=== PATIENT | female | born 1975 | race Caucasian/White ===

== ENCOUNTER 2016-07-27 01:38 | Emergency (ER) | payer OTHER ==
[~2016-07-27] VITALS: Ht 152.4 cm; Wt 62.6 kg
[~2016-07-27 01:38] MED LIST: REGLAN 10 MG; VAS5; [UNRECOGNIZED DRUG - CODE]
[2016-07-27 01:42] VITALS: BP 142/96
--- NOTE | 2016-07-27 01:45 | NUR ---
PATIENT AMBULATED TO ER BED 8.
--- NOTE | 2016-07-27 01:55 | NUR ---
PATIENT BEING EVALUATED BY DR. BOX.
[2016-07-27] MEDS ORDERED: MORPHINE SULFATE 4 MG/ML SYR IVP ONE (02:00)
--- NOTE | 2016-07-27 02:00 | NUR ---
PATIENT PRESENTS TO ED WITH LOWER ABD PAIN STRATED TODAY . DENIES N/V/D; SKIN IS PINK/WARM/DRY; AAOX4 WITH EVEN AND STEADY GAIT; LUNGS CLEAR BL; HR EVEN AND REGULAR; PT DENIES ANY FEVER, CP, SOB, OR COUGH AT THIS TIME; PATIENT STATES PAIN OF 10/10 AT THIS TIME; PATIENT POSITIONED FOR COMFORT; HOB ELEVATED; BEDRAILS UP X2; BED DOWN.PT SAID I CANNT URINATE AT THIS TIME
[2016-07-27 02:11] LABS: HEMATOCRIT 38.6 % (36-48); HEMOGLOBIN 12.7 g/dL (12.0-16.0); MEAN CORPUSCULAR HEMOGLOBIN 29 pg (27-31); MEAN CORPUSCULAR HGB CONC 33 g/dL (33-37); MEAN CORPUSCULAR VOLUME 88 fL (80-94); PLATELET COUNT (AUTO) 377 K/uL (140-450); RED CELL DISTRIBUTION WIDTH 12.4 % (11.6-13.7); WHITE BLOOD COUNT (AUTO) 8.2 K/uL (4.8-10.8)
--- NOTE | 2016-07-27 02:17 | NUR ---
STRAIGHT CATH DONE,NO BLEEDING NOTED.
[2016-07-27 02:20] LABS: ANION GAP 13.5 (8-16); CALCIUM 8.1 mg/dL (8.5-10.1); CREATININE 0.9 mg/dL (0.6-1.3); POTASSIUM 3.5 mmol/L (3.5-5.1)
[2016-07-27 02:22] LABS: BAND % (MANUAL) 2 % (0-8); NEUTROPHILS % (MANUAL) 41 (43-65)
[2016-07-27 02:23] LABS: EOSINOPHILS % (MANUAL) 1 % (0-4); MONOCYTES % (MANUAL) 3 % (5-12)
[2016-07-27 02:24] LABS: LYMPHOCYTES % (MANUAL) 53 % (20-46)
--- NOTE | 2016-07-27 02:25 | NUR ---
PT WENT TO CT VIA ONEL,PT AAO
--- NOTE | 2016-07-27 02:25 | NUR ---
RELAYED TO DR. BOX RESULT OF URINE DIPSTICK
[2016-07-27 02:28] LABS: ALBUMIN 3.9 g/dL (3.4-5.0); TOTAL BILIRUBIN 0.2 mg/dL (0.0-1.0); TOTAL PROTEIN, SERUM 7.5 g/dL (6.4-8.2)
--- NOTE | 2016-07-27 02:31 | NUR ---
BACK FROM CT
--- NOTE | 2016-07-27 02:48 | NUR ---
PT RESTING NO C/O PAIN AT THIS TIME, DAUGHTER AT BEDSIDE,VITAL SIGN STABLE
[2016-07-27 02:59] LABS: APPEARANCE,URINE CLEAR (CLEAR); BILIRUBIN,URINE NEGATIVE (NEGATIVE); BLOOD, URINE 3+ (NEGATIVE); COLOR,URINE YELLOW (YELLOW); LEUKOCYTE ESTERASE ,URINE TRACE (NEGATIVE); NITRITE, URINE NEGATIVE (NEGATIVE); PROTEIN,URINE NEGATIVE (NEGATIVE); UGLUCOSE NEGATIVE (NEGATIVE); UROBILINOGEN,URINE 0.2 EU/dL (0.2 - 1)
--- NOTE | 2016-07-27 03:08 | NUR ---
UPDATED PT STILL WAITING FOR RESULT OF CT AND URINE ANALYSIS,PT AAO,CALM,NO PAIN NOTED.
[2016-07-27 03:09] LABS: BACTERIA,URINE 1+ /HPF (None Seen); RBC,URINE 50-80 /HPF (0-5); WBC,URINE 0-5 (RARE) /HPF (0-5)
[2016-07-27 03:10] LABS: SQUAMOUS EPITHELIAL CELL,UR 4-10 (MOD) /LPF (0-3 (FEW))
--- NOTE | 2016-07-27 03:32 | NUR ---
DR. BOX AT BEDSIDE
--- NOTE | 2016-07-27 03:41 | NUR ---
DR. BOX DISCUSS TO PT FLUID INTAKE AND PT AGREED WITH IT
--- NOTE | 2016-07-27 03:44 | NUR ---
Patient discharged with v/s stable. Written and verbal after care instructions given and explained. Patient alert, oriented and verbalized understanding of instructions. Ambulatory with steady gait. All questions addressed prior to discharge. ID band removed. Patient advised to follow up with PMD. Rx of NORCO AND IBUPROFEN given. Patient educated on indication of medication including possible reaction and side effects. Opportunity to ask questions provided and answered.
[2016-07-27 03:45] VITALS: BP 130/93
== END 2016-07-27 03:44 | disposition home or self-care (01) ==
LOC: MED 01:38
DX: N13.2 Hydronephrosis with renal and ureteral calculous obstruction (principal); I10 Essential (primary) hypertension; J45.909 Unspecified asthma, uncomplicated
CPT/HCPCS: 36415; 74176; 80053; 81001; 81025; 82150; 83690; 85025; 87086; 96374; 99285; C1758; J2270

== ENCOUNTER 2020-02-01 23:19 | Emergency (ER) | payer OTHER ==
[~2020-02-01] VITALS: Ht 152.4 cm; Wt 59.0 kg
[~2020-02-01 23:19] MED LIST changes: +ATA25 PO; +ESK300 PO; +FENO130C6 PO; +IPRA12.9 IH; +OMEP20TC22 PO; +QUET400T PO; -REGLAN 10 MG; -VAS5; -[UNRECOGNIZED DRUG - CODE]; +[UNRECOGNIZED DRUG - CODE] SQ
[2020-02-01 23:20] VITALS: BP 127/77
--- NOTE | 2020-02-01 23:20 | NUR ---
TO TENT # 01 AMBULATORY
--- NOTE | 2020-02-01 23:50 | NUR ---
SEEN AND EXAMINED BY ANA LILIA WITH ORDERS AND CARRIED OUT
--- NOTE | 2020-02-01 23:55 | NUR ---
SWAB DONE AND SENT TO LAB
[2020-02-02] VITALS: BP 127/77
--- NOTE | 2020-02-02 | NUR ---
Patient discharged with v/s stable. Written and verbal after care instructions given and explained. Patient alert, oriented and verbalized understanding of instructions. Ambulatory with steady gait. All questions addressed prior to discharge. ID band removed. Patient advised to follow up with PMD. Rx of MOTRIN, PREDNISONE given. Patient educated on indication of medication including possible reaction and side effects. Opportunity to ask questions provided and answered.
== END 2020-02-02 | disposition home or self-care (01) ==
LOC: MED 23:19
DX: J02.9 Acute pharyngitis, unspecified (principal); Z20.828 Contact with and (suspected) exposure to other viral communicable diseases; J45.909 Unspecified asthma, uncomplicated; I10 Essential (primary) hypertension; Z90.49 Acquired absence of other specified parts of digestive tract; Z98.890 Other specified postprocedural states; Z79.899 Other long term (current) drug therapy
CPT/HCPCS: 99283; U0003

== ENCOUNTER 2020-03-30 13:30 | Emergency (ER) | payer OTHER ==
[~2020-03-30] VITALS: Ht 154.9 cm; Wt 59.9 kg
[2020-03-30 13:35] VITALS: BP 115/77
--- NOTE | 2020-03-30 13:41 | NUR ---
PT AMBULATED TO BED 3.
--- NOTE | 2020-03-30 13:50 | NUR ---
45 Y/O FEMALE COMING IN FROM HOME WITH C/C HEADACHE. PT STATES SHE HAS BEEN EXPERIENCING A HEADACHE THAT BEGINS IN THE BACK OF HER HEAD, RADIATES TO THE FRONT TOWARD HER NECK, AND DOWN BOTH SHOULDERS. PT STATES THIS MORNING SHE FELT THAT HER THROAT WAS CLOSING UP, HOWEVER, IT RELIEVED ITSELF WITH TIME. PT STATES PAIN 8/10, "THROBBING" PAIN, RADIATES TO FRONT OF HEAD, DOWN NECK AND TO BOTH SHOULDERS. PT STATES SHE TAKES MEDICATION PRESCRIBED WITH NO RELIEF. PT ALSO STATES SHORT TERM MEMORY LOSS SINCE 12/05. PT STATES ASSOCIATED DIZZINESS. PT DENIES NAUSEA/VOMITING, CHEST PAIN, SOB, ABD PAIN, BLURRY VISION, RINGING OF THE EARS. PT PLACED ONTO NATIONAL ACCOUNTS RECRUITER. LUNG SOUNDS CTA. BOWEL SOUNDS X 4 QUADRANTS. BED LOCKED IN LOWEST POSITION, SIDE RAILS X 1. MED HX: MIGRAINES, HTN, HYPERLIPIDEMIA, STOMACH ULCER, INSOMNIA MEDS: LISINOPRIL, HYDROXYZINE, CLONAZEPAM, QUETIAPINE, COSENTYX, ATROVENT, OMPEPRAZOLE, ATORVASTIN, ASA, SUMATRIPTAN, HYDROCHLOROTHIAZIDE NKA
--- NOTE | 2020-03-30 13:52 | NUR ---
DR. AMIN IS EVALUATING PATIENT AT BEDSIDE.
[2020-03-30] MEDS ORDERED: diphenhydrAMINE 50 MG/ML VIAL IM ONE (14:00)
[2020-03-30] MEDS ORDERED: KETOROLAC 60 MG/2 ML VIAL IM ONE (14:00)
[2020-03-30] MEDS ORDERED: PROCHLORPERAZINE 10 MG/2 ML VIAL IM ONE (14:00)
--- NOTE | 2020-03-30 14:15 | NUR ---
PT RESTING IN SEMI-FOWLERS IN POSITION OF COMFORT. PT PROVIDED WITH BLANKET AND LIGHTS DIMMED PER REQUEST. PANEL EDGE SEALER IN PLACE. BED LOCKED IN LOWEST POSITION, SIDE RAILS X 1, CALL LIGHT IN REACH. ALL PT NEEDS MET AT THIS TIME.
[2020-03-30] MEDS ORDERED: CYCLOBENZAPRINE 10 MG TAB PO ONE (14:45)
[2020-03-30] MEDS ORDERED: SUMAtriptan succinate 6 MG/0.5 ML VIAL SUBQ ONE (14:45)
--- NOTE | 2020-03-30 15:27 | NUR ---
PT RESTING IN SEMI-FOWLERS IN POSITION OF COMFORT. PT STATES RELIEF AFTER MEDICATION ADMINISTRATION. PT STATES SHE IS ABLE TO MOVE HER HEAD NOW. FLIGHT ATTENDANT INFLIGHT SERVICES IN PLACE. BED LOCKED IN LOWEST POSITION, SIDE RAILS X 1, CALL LIGHT IN REACH. ALL PT NEEDS MET AT THIS TIME.
--- NOTE | 2020-03-30 15:48 | NUR ---
PT PRESENTS WITH BOTH EYES CLOSED IN SEMI-FOWLERS. PAIN REASSESSMENT 07/26, PT STATES SHE "FEELS RELAXED." PROFESSOR OF PUBLIC ADMINISTRATION IN PLACE. BED LOCKED IN LOWEST POSITION, SIDE RAILS X 1, CALL LIGHT IN REACH.
--- NOTE | 2020-03-30 16:01 | NUR ---
PT STATES RIDE ACCOMODATION WITH ETA OF 15 MINUTES.
--- NOTE | 2020-03-30 16:16 | NUR ---
PT STATES RIDE IS HERE OUTSIDE ER.
[2020-03-30 16:18] VITALS: BP 108/85
--- NOTE | 2020-03-30 16:18 | NUR ---
Patient discharged with v/s stable. Written and verbal after care instructions given and explained. Patient alert, oriented and verbalized understanding of instructions. Ambulatory with steady gait. All questions addressed prior to discharge. ID band removed. Patient advised to follow up with PMD. Rx of FLEXERIL given. Patient educated on indication of medication including possible reaction and side effects. Opportunity to ask questions provided and answered.
== END 2020-03-30 16:18 | disposition home or self-care (01) ==
LOC: MED 13:30
DX: G43.909 Migraine, unspecified, not intractable, without status migrainosus (principal); I10 Essential (primary) hypertension; E78.00 Pure hypercholesterolemia, unspecified; G47.00 Insomnia, unspecified
CPT/HCPCS: 96372; 99284; J0780; J1200; J1885; J3030

== ENCOUNTER 2020-06-06 09:24 | Emergency (ER) | payer BC, OTHER ==
[~2020-06-06] VITALS: Ht 152.4 cm; Wt 59.0 kg
[2020-06-06 09:28] VITALS: BP 126/89
--- NOTE | 2020-06-06 09:34 | NUR ---
PT WHEELED TO BED 12
--- NOTE | 2020-06-06 09:41 | NUR ---
Dr. Avilez is evaluating the patient at bedside.
--- NOTE | 2020-06-06 09:44 | NUR ---
45 Y/O FEMALE FROM HOME C/O LEFT LEG PAIN X 3 DAYS. PT STATES PAIN RADIATES FROM LEG HIP TO LEFT FOOT. UNABLE TO BEAR WEIGHT ON LEG. NO SWELLING/BRUISING NOTED. DENIES TRAUMA/INJURY. CAP REFILL <2 SEC. SKIN WARM, DRY, INTACT. AWAKE AND ALERT. VSS MEDHX: PRE DM, HLD, HTN, ANXIETY, PSORIASIS, MIGRAINES, ULCER
[2020-06-06] MEDS ORDERED: KETOROLAC 60 MG/2 ML VIAL IM ONE (09:50)
--- NOTE | 2020-06-06 10:07 | NUR ---
PT WHEELED TO RADIOLOGY VIA [employer].
[2020-06-06] MEDS ORDERED: HYDROcodone/APAP 5/325 MG 1 TAB TAB PO ONE (10:50)
--- NOTE | 2020-06-06 11:00 | NUR ---
ULTRASOUND AT BEDSIDE
[2020-06-06] MEDS ORDERED: [UNRECOGNIZED DRUG - CODE] PO (11:55)
[2020-06-06] MEDS ORDERED: ACET-8386 PO ×2 (11:55→14:33)
--- NOTE | 2020-06-06 12:00 | NUR ---
pt demonstrated proper use of crutches without any issues
--- NOTE | 2020-06-06 12:04 | NUR ---
EMT AT BEDSIDE FOR CRUTCH TRAINING WITH PATIENT.
[2020-06-06 12:05] VITALS: BP 113/74
--- NOTE | 2020-06-06 12:06 | NUR ---
Patient discharged with v/s stable. Written and verbal after care instructions given and explained. Patient alert, oriented and verbalized understanding of instructions. Ambulatory with steady gait. All questions addressed prior to discharge. ID band removed. Patient advised to follow up with PMD. Rx of HYDROCODONE/ACETAMINOPHEN AND NAPROXEN given. Patient educated on indication of medication including possible reaction and side effects. Opportunity to ask questions provided and answered.
[2020-06-06] MEDS ORDERED: NAPR-1718 PO (14:33)
== END 2020-06-06 12:06 | disposition home or self-care (01) ==
LOC: MED 09:24
DX: M25.552 Pain in left hip (principal); I10 Essential (primary) hypertension; G47.00 Insomnia, unspecified; E78.5 Hyperlipidemia, unspecified; Z90.49 Acquired absence of other specified parts of digestive tract; Z98.51 Tubal ligation status; Z98.890 Other specified postprocedural states; Z79.1 Long term (current) use of non-steroidal anti-inflammatories (NSAID); Z79.891 Long term (current) use of opiate analgesic; Z79.899 Other long term (current) drug therapy; Z79.51 Long term (current) use of inhaled steroids
CPT/HCPCS: 73502; 93971; 96372; 99284; J1885

== ENCOUNTER 2022-01-24 07:38 | Day surgery (SDC) | payer OTHER ==
[~2022-01-24] VITALS: Ht 152.4 cm; Wt 57.2 kg
[~2022-01-24 07:38] MED LIST changes: +ACET-8386 PO; +NAPR-1718 PO; +[UNRECOGNIZED DRUG - CODE] PO
[2022-01-24 08:49] LABS: BASOPHILS # (AUTO) 0.1 K/uL (0.00-0.22); BASOPHILS % (AUTO) 0.9 % (0.0-2.0); EOSINOPHILS # (AUTO) 0.1 K/uL (0-0.4); EOSINOPHILS % (AUTO) 1.5 % (0.0-4.0); LYMPHOCYTES # (AUTO) 2.3 K/uL (2.5-16.5); LYMPHOCYTES % (AUTO) 32.3 % (20.5-51.1); MEAN CORPUSCULAR HEMOGLOBIN 30 pg (27-31); MEAN CORPUSCULAR HGB CONC 33 g/dL (33-37); MEAN CORPUSCULAR VOLUME 89.7 fL (80-94); MONOCYTES # (AUTO) 0.5 K/uL (0.8-1.0); MONOCYTES % (AUTO) 7.7 % (1.7-9.3); NEUTROPHILS % (AUTO) 57.6 % (42.2-75.2); PLATELET COUNT (AUTO) 310 K/uL (140-450); RED BLOOD CELL COUNT(AUTO) 4.35 MIL/uL (4.20-5.40); RED CELL DISTRIBUTION WIDTH 13.8 % (11.6-13.7)
[2022-01-24 08:56] LABS: ALBUMIN 4.2 g/dL (3.4-5.0); ANION GAP 7.4 (8-16); CARBON DIOXIDE 30.2 mmol/L (21-32); CREATININE 0.9 mg/dL (0.6-1.3); POTASSIUM 3.6 mmol/L (3.5-5.1); TOTAL BILIRUBIN 0.4 mg/dL (0.0-1.0)
[2022-01-24] MEDS ORDERED: fentaNYL citrate 0.05 MG/ML - 50mL vial IV ONE (10:20)
[2022-01-24] MEDS ORDERED: PROPOFOL 200 MG/20 ML VIAL IV ONE ×3 (10:20→11:18)
[2022-01-24] MEDS ORDERED: MIDAZOLAM 2 MG/2 ML VIAL ONE ×2 (10:20→10:29)
[2022-01-24] MEDS ORDERED: fentaNYL citrate 0.05 MG/ML VIAL ONE (10:30)
[2022-01-24] MEDS ORDERED: ONDANSETRON 4 MG/2 ML VIAL IVP PRN (11:15)
[2022-01-24] MEDS ORDERED: MEPERIDINE 25 MG/ML SYR IVP PRN (11:15)
== END 2022-01-24 12:30 | disposition home or self-care (01) ==
LOC: MDS 07:38 → MMU 07:39 → MDS 12:30
PROVIDERS: ATTEND Internal Medicine Gastroenterology
DX: Z12.11 Encounter for screening for malignant neoplasm of colon (principal); R13.10 Dysphagia, unspecified; I10 Essential (primary) hypertension; E78.00 Pure hypercholesterolemia, unspecified; E11.9 Type 2 diabetes mellitus without complications; F41.9 Anxiety disorder, unspecified; G47.33 Obstructive sleep apnea (adult) (pediatric); Z99.89 Dependence on other enabling machines and devices; F31.9 Bipolar disorder, unspecified; Z90.49 Acquired absence of other specified parts of digestive tract; G47.00 Insomnia, unspecified; Z20.822 Contact with and (suspected) exposure to COVID-19; Z98.890 Other specified postprocedural states; Z79.82 Long term (current) use of aspirin; Z79.899 Other long term (current) drug therapy
CPT/HCPCS: 36415; 43239; 45378; 80053; 82948; 85025; 87426; 93005; J2250; J2704; J3010; J7030

== ENCOUNTER 2022-04-14 06:30 | Day surgery (SDC) | payer OTHER ==
[~2022-04-14] VITALS: Ht 152.4 cm; Wt 59.0 kg
[2022-04-14] MEDS ORDERED: LIDOCAINE 2% 100 MG/5 ML UJET TP ONE (07:28)
[2022-04-14] MEDS ORDERED: fentaNYL citrate 0.05 MG/ML VIAL ONE (07:28)
[2022-04-14] MEDS ORDERED: MIDAZOLAM 2 MG/2 ML VIAL ONE ×2 (07:48)
[2022-04-14] MEDS ORDERED: fentaNYL citrate 0.05 MG/ML VIAL IVP ONE (09:50)
[2022-04-14] MEDS ORDERED: MIDAZOLAM 2 MG/2 ML VIAL IVP ONE (09:50)
== END 2022-04-14 09:00 | disposition home or self-care (01) ==
LOC: MOR 06:30 → MMU 06:31 → MOR 09:00
PROVIDERS: ATTEND Internal Medicine Gastroenterology
DX: K62.5 Hemorrhage of anus and rectum (principal); R13.10 Dysphagia, unspecified; E78.5 Hyperlipidemia, unspecified; Z20.822 Contact with and (suspected) exposure to COVID-19; Z90.49 Acquired absence of other specified parts of digestive tract; Z98.890 Other specified postprocedural states; Z79.82 Long term (current) use of aspirin; Z79.899 Other long term (current) drug therapy
CPT/HCPCS: 45378; 87426; J2250; J3010

== ENCOUNTER 2022-04-23 17:04 | Emergency (ER) | payer OTHER ==
[~2022-04-23] VITALS: Ht 154.9 cm; Wt 61.2 kg
[2022-04-23 17:23] VITALS: BP 130/110
[2022-04-23] MEDS ORDERED: PROM118S5 PO (19:54)
[2022-04-23] MEDS ORDERED: ACET-10509 PO (19:54)
[2022-04-23 20:20] VITALS: BP 130/81
--- NOTE | 2022-04-23 20:20 | NUR ---
Patient discharged with v/s stable. Written and verbal after care instructions given and explained. Patient alert, oriented and verbalized understanding of instructions. Ambulatory with steady gait. All questions addressed prior to discharge. ID band removed. Patient advised to follow up with PMD. Rx of promethnazine, tylenol given. Patient educated on indication of medication including possible reaction and side effects. Opportunity to ask questions provided and answered.
== END 2022-04-23 20:20 | disposition home or self-care (01) ==
LOC: MED 17:04
DX: J06.9 Acute upper respiratory infection, unspecified (principal); E11.9 Type 2 diabetes mellitus without complications; I10 Essential (primary) hypertension; Z79.899 Other long term (current) drug therapy
CPT/HCPCS: 71045; 99283

== ENCOUNTER 2023-08-13 14:43 | Emergency (ER) | payer OTHER ==
[~2023-08-13] VITALS: Ht 157.5 cm; Wt 61.0 kg
[~2023-08-13 14:43] MED LIST changes: +ACET-10509 PO; -ACET-8386 PO; -ATA25 PO; -ESK300 PO; -FENO130C6 PO; -IPRA12.9 IH; -NAPR-1718 PO; -OMEP20TC22 PO; +PROM118S5 PO; -QUET400T PO; -[UNRECOGNIZED DRUG - CODE] PO; -[UNRECOGNIZED DRUG - CODE] SQ
[2023-08-13 15:03] VITALS: BP 165/100; PULSE 111; RESP 18; TEMP 97; O2SAT 96
[2023-08-13 16:07] LABS: BASOPHILS # (AUTO) 0.1 K/uL (0.00-0.22); BASOPHILS % (AUTO) 0.9 % (0.0-2.0); EOSINOPHILS # (AUTO) 0.1 K/uL (0-0.4); EOSINOPHILS % (AUTO) 1.9 % (0.0-4.0); HEMATOCRIT 40.1 % (36-48); HEMOGLOBIN 13.5 g/dL (12.0-16.0); LYMPHOCYTES # (AUTO) 2.1 K/uL (2.5-16.5); LYMPHOCYTES % (AUTO) 30.5 % (20.5-51.1); MEAN CORPUSCULAR HEMOGLOBIN 29 pg (27-31); MEAN CORPUSCULAR HGB CONC 34 g/dL (33-37); MONOCYTES # (AUTO) 0.7 K/uL (0.8-1.0); MONOCYTES % (AUTO) 10.5 % (1.7-9.3); NEUTROPHILS # (AUTO) 3.9 K/uL (1.8-7.7); NEUTROPHILS % (AUTO) 56.2 % (42.2-75.2); PLATELET COUNT (AUTO) 280 K/uL (140-450); RED BLOOD CELL COUNT(AUTO) 4.66 MIL/uL (4.20-5.40); RED CELL DISTRIBUTION WIDTH 14.5 % (11.6-13.7); WHITE BLOOD COUNT (AUTO) 6.9 K/uL (4.8-10.8)
[2023-08-13 16:15] LABS: ANION GAP 11.5 (8-16); CARBON DIOXIDE 29.5 mmol/L (21-32); CREATININE 0.9 mg/dL (0.6-1.3)
[2023-08-13 16:26] LABS: TOTAL BILIRUBIN 0.9 mg/dL (0.0-1.0); TOTAL PROTEIN, SERUM 8.1 g/dL (6.4-8.2)
[2023-08-13 20:06] LABS: APPEARANCE,URINE CLEAR (CLEAR); BILIRUBIN,URINE NEGATIVE (NEGATIVE); BLOOD, URINE NEGATIVE (NEGATIVE); COLOR,URINE YELLOW (YELLOW); LEUKOCYTE ESTERASE ,URINE NEGATIVE (NEGATIVE); NITRITE, URINE NEGATIVE (NEGATIVE); UGLUCOSE 3+ (NEGATIVE)
[2023-08-13 20:29] LABS: PROTEIN,URINE NEGATIVE (NEGATIVE)
[2023-08-13] MEDS: FLUCONAZOLE 100 MG TAB PO ONE (21:06)
[2023-08-13] MEDS ORDERED: METR-435 PO (21:51)
[2023-08-13 22:00] VITALS: BP 170/111; PULSE 93; RESP 18; TEMP 97; O2SAT 97
== END 2023-08-13 22:00 | disposition home or self-care (01) ==
LOC: MED 14:43
DX: R10.2 Pelvic and perineal pain (principal); R10.30 Lower abdominal pain, unspecified; R30.0 Dysuria; E11.9 Type 2 diabetes mellitus without complications; I10 Essential (primary) hypertension; Z79.1 Long term (current) use of non-steroidal anti-inflammatories (NSAID); Z79.899 Other long term (current) drug therapy
CPT/HCPCS: 36415; 76830; 80053; 81003; 81025; 85025; 87210; 99284

== ENCOUNTER 2023-10-01 19:20 | Inpatient (IN) | payer OTHER ==
[~2023-10-01] VITALS: Ht 152.4 cm; Wt 59.0 kg
[~2023-10-01 19:20] MED LIST changes: -ACET-10509 PO; +ACET500T99 PO; +METR-435 PO
[2023-10-01 19:53] VITALS: BP_SYST 142; BP_SYST 94; BP_DIAS 59; BP_DIAS 83; PULSE 79; RESP 16; TEMP 98.2; O2SAT 98
[2023-10-01] MEDS ORDERED: ONDANSETRON 4 MG/2 ML VIAL ONE (21:47)
[2023-10-01] MEDS ORDERED: KETOROLAC 30 MG/ML VIAL ONE (21:47)
[2023-10-01] MEDS: NACL 0.9% 1,000 ML IV ONE (21:55)
[2023-10-01] MEDS: ONDANSETRON 4 MG/2 ML VIAL IVP ONE (22:01)
[2023-10-01] MEDS: KETOROLAC 30 MG/ML VIAL IVP ONE (22:02)
[2023-10-01 22:07] LABS: BILIRUBIN,URINE 1+ (NEGATIVE); BLOOD, URINE 1+ (NEGATIVE); COLOR,URINE YELLOW (YELLOW); LEUKOCYTE ESTERASE ,URINE 1+ (NEGATIVE); NITRITE, URINE NEGATIVE (NEGATIVE); PROTEIN,URINE 2+ (NEGATIVE); UGLUCOSE 1+ (NEGATIVE)
[2023-10-01 22:08] LABS: BASOPHILS % (AUTO) 0.3 % (0.0-2.0); EOSINOPHILS % (AUTO) 0.2 % (0.0-4.0); HEMATOCRIT 36.3 % (36-48); HEMOGLOBIN 12.3 g/dL (12.0-16.0); LYMPHOCYTES # (AUTO) 1.1 K/uL (2.5-16.5); LYMPHOCYTES % (AUTO) 6.7 % (20.5-51.1); MEAN CORPUSCULAR HEMOGLOBIN 28 pg (27-31); MEAN CORPUSCULAR HGB CONC 34 g/dL (33-37); MEAN CORPUSCULAR VOLUME 82.3 fL (80-94); MONOCYTES # (AUTO) 1.7 K/uL (0.8-1.0); MONOCYTES % (AUTO) 10.2 % (1.7-9.3); NEUTROPHILS # (AUTO) 13.6 K/uL (1.8-7.7); NEUTROPHILS % (AUTO) 82.6 % (42.2-75.2); PLATELET COUNT (AUTO) 183 K/uL (140-450); RED BLOOD CELL COUNT(AUTO) 4.41 MIL/uL (4.20-5.40); RED CELL DISTRIBUTION WIDTH 13.1 % (11.6-13.7); WHITE BLOOD COUNT (AUTO) 16.5 K/uL (4.8-10.8)
[2023-10-01 22:19] LABS: CALCIUM 8.3 mg/dL (8.5-10.1); CARBON DIOXIDE 26.4 mmol/L (21-32); CREATININE 1.6 mg/dL (0.6-1.3); POTASSIUM 3.4 mmol/L (3.5-5.1)
[2023-10-01 22:23] LABS: APPEARANCE,URINE HAZY (CLEAR)
[2023-10-01 22:25] LABS: ICTOTEST POSITIVE (NEGATIVE)
[2023-10-01 22:26] LABS: BACTERIA,URINE 1+ /HPF (None Seen); MUCUS,URINE None Seen /LPF (None Seen); RBC,URINE 0-5 /HPF (0-5); SQUAMOUS EPITHELIAL CELL,UR 4-10 (MOD) /LPF (0-3 (FEW)); WBC,URINE 0-5 /HPF (0-5)
[2023-10-01 22:27] LABS: ALANINE AMINOTRANSFERASE 146 U/L (12-78); ALBUMIN 2.9 g/dL (3.4-5.0); ALKALINE PHOSPHATASE 168 U/L (50-136); ASPARTATE AMINOTRANSFERASE 90 U/L (15-37); LIPASE 16 U/L (16-77); TOTAL BILIRUBIN 1.4 mg/dL (0.0-1.0); TOTAL PROTEIN, SERUM 7.2 g/dL (6.4-8.2)
[2023-10-01 22:45] LABS: FLU A ANTIGEN negative (NEGATIVE); FLU B ANTIGEN NEGATIVE (NEGATIVE)
[2023-10-01] MEDS ORDERED: PIPERACILLIN/TAZOBACTAM 2.25 GM VIAL IV ONE (23:53)
[2023-10-02] VITALS (7 sets, daily range): BP systolic 107–133; BP diastolic 64–84; PULSE 98–112; RESP 16–18; TEMP 97.5–98.9; O2SAT 94–96
[2023-10-02] MEDS: PIPERACILLIN/TAZOBACTAM 2.25 GM in DEXTROSE 5% 50 ML IV ONE (00:07)
[2023-10-02] MEDS ORDERED: ATOR10TA PO (00:10)
[2023-10-02] MEDS ORDERED: ASPI-1822 PO (00:10)
[2023-10-02] MEDS ORDERED: QUET400T PO (00:10)
[2023-10-02] MEDS ORDERED: METF-346 PO (00:10)
[2023-10-02] MEDS ORDERED: CLON-1201 PO (00:10)
[2023-10-02] MEDS: metroNIDAZOLE 500 MG/NS PREMIX 100 ML IV ONE (00:53)
[2023-10-02] MEDS ORDERED: DEXTROSE 50% 50 ML SYR IVP PRN (02:55)
[2023-10-02] MEDS: NACL 0.9% 1,000 ML IV ONE (03:36)
[2023-10-02 03:56] LABS: LACTIC ACID 1.3 mmol/L (0.4-2.0)
[2023-10-02 04:32] LABS: BASOPHILS % (AUTO) 0.3 % (0.0-2.0); EOSINOPHILS # (AUTO) 0.1 K/uL (0-0.4); EOSINOPHILS % (AUTO) 0.8 % (0.0-4.0); HEMATOCRIT 32.9 % (36-48); HEMOGLOBIN 11.1 g/dL (12.0-16.0); LYMPHOCYTES # (AUTO) 0.8 K/uL (2.5-16.5); LYMPHOCYTES % (AUTO) 6.1 % (20.5-51.1); MEAN CORPUSCULAR HEMOGLOBIN 28 pg (27-31); MEAN CORPUSCULAR HGB CONC 34 g/dL (33-37); MEAN CORPUSCULAR VOLUME 82.7 fL (80-94); MONOCYTES % (AUTO) 7.5 % (1.7-9.3); NEUTROPHILS # (AUTO) 11.2 K/uL (1.8-7.7); NEUTROPHILS % (AUTO) 85.3 % (42.2-75.2); PLATELET COUNT (AUTO) 165 K/uL (140-450); RED BLOOD CELL COUNT(AUTO) 3.97 MIL/uL (4.20-5.40); WHITE BLOOD COUNT (AUTO) 13.1 K/uL (4.8-10.8)
[2023-10-02 04:50] LABS: ALBUMIN 2.5 g/dL (3.4-5.0); ANION GAP 12.2 (8-16); CALCIUM 7.3 mg/dL (8.5-10.1); CARBON DIOXIDE 26.1 mmol/L (21-32); CREATININE 1.3 mg/dL (0.6-1.3); POTASSIUM 3.3 mmol/L (3.5-5.1); TOTAL BILIRUBIN 1.1 mg/dL (0.0-1.0); TOTAL PROTEIN, SERUM 6.4 g/dL (6.4-8.2)
[2023-10-02 04:53] LABS: LACTIC ACID 1.2 mmol/L (0.4-2.0)
[2023-10-02 04:57] LABS: INR 1.13 (0.8-1.2); PARTIAL THROMBOPLASTIN TIME 34.3 secs (22-35.6); PROTHROMBIN TIME 11.8 secs (10.8-13.4)
[2023-10-02 05:12] LABS: BLOOD GAS PH 7.445 (7.35-7.45)
[2023-10-02 05:13] LABS: BLOOD GAS BASE EXCESS 0.1 mmol/L (-2.0-2.0); BLOOD GAS HCO3 23.8 mmol/L (22-26); BLOOD GAS PCO2 35.4 mmHg (35-45); BLOOD GAS PO2 58.6 mmHg (75-100)
[2023-10-02 05:15] LABS: BLOOD GAS O2 SAT% 90.4 % (92.0-98.5)
[2023-10-02] MEDS: PIPERACILLIN/TAZOBACTAM 3.375 GM in DEXTROSE 5% 50 ML IV SCH (06:10)
[2023-10-02] MEDS: PIPERACILLIN/TAZOBACTAM 3.375 GM VIAL IV ONE (06:18)
[2023-10-02] MEDS: BLOOD GLUCOSE MONITORING 1 DEV DEV FS SCH (06:47)
[2023-10-02] MEDS: INSULIN LISPRO SLIDING SCALE 100 UNITS/ML VIAL SUBQ PRN (06:48)
[2023-10-02] MEDS: POTASSIUM CHLORIDE 10 MEQ TABER PO SCH (17:52)
[2023-10-02] MEDS ORDERED: PROMETHAZINE DM 6.25/15MG-5ML ORASYR PO PRN (18:45)
[2023-10-02] MEDS: ATORVASTATIN 20 MG TAB PO SCH (20:22)
[2023-10-02] MEDS: QUEtiapine FUMARATE 100 MG TAB PO SCH (20:22)
[2023-10-02] MEDS: CRUSHER, PILL MC ONE (20:39)
[2023-10-03] VITALS (7 sets, daily range): BP systolic 114–165; BP diastolic 79–105; PULSE 97–120; RESP 18–20; TEMP 97.3–98.7; O2SAT 94–100
[2023-10-03 06:53] LABS: HEMATOCRIT 33.7 % (36-48); HEMOGLOBIN 11.3 g/dL (12.0-16.0); MEAN CORPUSCULAR HEMOGLOBIN 28 pg (27-31); MEAN CORPUSCULAR HGB CONC 34 g/dL (33-37); MEAN CORPUSCULAR VOLUME 82.7 fL (80-94); PLATELET COUNT (AUTO) 187 K/uL (140-450); RED BLOOD CELL COUNT(AUTO) 4.08 MIL/uL (4.20-5.40); RED CELL DISTRIBUTION WIDTH 13.1 % (11.6-13.7); WHITE BLOOD COUNT (AUTO) 8.5 K/uL (4.8-10.8)
[2023-10-03 07:31] LABS: BLASTS, MANUAL % 3 % (0-0); EOSINOPHILS % (MANUAL) 5 % (0-4); LYMPHOCYTES % (MANUAL) 15 % (20-46); MONOCYTES % (MANUAL) 15 % (5-12); MYELOCYTES % 2 % (0-0)
[2023-10-03 07:41] LABS: ALBUMIN 2.2 g/dL (3.4-5.0); CALCIUM 7.6 mg/dL (8.5-10.1); TOTAL BILIRUBIN 1.4 mg/dL (0.0-1.0); TOTAL PROTEIN, SERUM 6.3 g/dL (6.4-8.2)
[2023-10-03 07:54] LABS: ANION GAP 15.4 (8-16); POTASSIUM 3.4 mmol/L (3.5-5.1)
[2023-10-03] MEDS ORDERED: metFORMIN 500 MG TAB PO SCH (09:00)
[2023-10-03] MEDS: ASPIRIN 81 MG TAB.CHEW PO SCH (10:00)
[2023-10-03] MEDS: clonazePAM 0.5 MG TAB PO SCH (10:03)
[2023-10-03] MEDS: POTASSIUM CHLORIDE 10 MEQ TABER PO SCH (11:45)
[2023-10-03 12:07] LABS: HEPATITIS A ANTIBODY IGM Negative (Negative); HEPATITIS A ANTIBODY TOTAL Negative (Negative); HEPATITIS B CORE AB TOTAL Negative (Negative); HEPATITIS B CORE, IGM Negative (Negative); HEPATITIS B SURFACE ANTIBODY Non Reactive (.); HEPATITIS B SURFACE ANTIGEN Negative (Negative); HEPATITIS C VIRUS ANTIBODY Non Reactive (Non Reactive)
[2023-10-03] MEDS: CEFEPIME 1,000 MG in DEXTROSE 5% 50 ML IV SCH (20:38)
[2023-10-03] MEDS ORDERED: hydrALAZINE 25 MG TAB PO PRN (20:55)
[2023-10-04] VITALS: BP 135/86; PULSE 103; RESP 18; TEMP 98.2; O2SAT 95
[2023-10-04 04:00] VITALS: BP 135/88; PULSE 102; PULSE 95; RESP 18; TEMP 98.1; O2SAT 95
[2023-10-04] MEDS: ACETAMINOPHEN EXTRA STRENGTH 500 MG TAB PO PRN (06:38)
[2023-10-04 07:06] LABS: BASOPHILS # (AUTO) 0.1 K/uL (0.00-0.22); BASOPHILS % (AUTO) 0.9 % (0.0-2.0); EOSINOPHILS # (AUTO) 0.2 K/uL (0-0.4); EOSINOPHILS % (AUTO) 2.8 % (0.0-4.0); HEMOGLOBIN 11.4 g/dL (12.0-16.0); LYMPHOCYTES # (AUTO) 1.9 K/uL (2.5-16.5); LYMPHOCYTES % (AUTO) 24.4 % (20.5-51.1); MEAN CORPUSCULAR HEMOGLOBIN 28 pg (27-31); MEAN CORPUSCULAR HGB CONC 33 g/dL (33-37); MEAN CORPUSCULAR VOLUME 83.1 fL (80-94); MONOCYTES # (AUTO) 1.3 K/uL (0.8-1.0); MONOCYTES % (AUTO) 16.5 % (1.7-9.3); NEUTROPHILS # (AUTO) 4.4 K/uL (1.8-7.7); NEUTROPHILS % (AUTO) 55.4 % (42.2-75.2); PLATELET COUNT (AUTO) 207 K/uL (140-450); WHITE BLOOD COUNT (AUTO) 7.9 K/uL (4.8-10.8)
[2023-10-04 07:15] LABS: ALBUMIN 2.4 g/dL (3.4-5.0); ANION GAP 17.4 (8-16); CALCIUM 8.3 mg/dL (8.5-10.1); CARBON DIOXIDE 20.4 mmol/L (21-32); CREATININE 0.9 mg/dL (0.6-1.3); POTASSIUM 3.8 mmol/L (3.5-5.1); TOTAL BILIRUBIN 1.1 mg/dL (0.0-1.0); TOTAL PROTEIN, SERUM 6.8 g/dL (6.4-8.2)
[2023-10-04 08:00] VITALS: BP 146/99; PULSE 112; PULSE 98; PULSE 99; RESP 18; TEMP 97.5; TEMP 97.7; O2SAT 94; O2SAT 95
[2023-10-04] MEDS ORDERED: CEPH-588 PO (10:56)
[2023-10-04] MEDS ORDERED: LACT1CAP81 PO (10:56)
[2023-10-04] MEDS ORDERED: CLON-1201 PO (11:22)
[2023-10-04 12:00] VITALS: BP 133/97; PULSE 101; PULSE 92; RESP 18; TEMP 96.7; O2SAT 95
[2023-10-04 12:19] VITALS: BP 133/97; PULSE 101; RESP 18; TEMP 96.7
== END 2023-10-04 13:07 | disposition home or self-care (01) | DRG 720 ==
LOC: MED 19:20 → MTU 10-02 02:48 → OBSVTOIN 10-02 12:25
PROVIDERS: ADMIT Hospitalist; ATTEND Hospitalist
DX: A41.9 Sepsis, unspecified organism (principal); E44.0 Moderate protein-calorie malnutrition; E11.22 Type 2 diabetes mellitus with diabetic chronic kidney disease; E87.1 Hypo-osmolality and hyponatremia; N12 Tubulo-interstitial nephritis, not specified as acute or chronic; E83.51 Hypocalcemia; B96.20 Unspecified Escherichia coli [E. coli] as the cause of diseases classified elsewhere; A08.4 Viral intestinal infection, unspecified; N18.32 Chronic kidney disease, stage 3b; E11.9 Type 2 diabetes mellitus without complications; E86.1 Hypovolemia; I10 Essential (primary) hypertension; R74.01 Elevation of levels of liver transaminase levels; Z20.822 Contact with and (suspected) exposure to COVID-19; M25.572 Pain in left ankle and joints of left foot; M25.571 Pain in right ankle and joints of right foot; Z90.49 Acquired absence of other specified parts of digestive tract; Z88.8 Allergy status to other drugs, medicaments and biological substances; Z79.899 Other long term (current) drug therapy; Z68.25 Body mass index [BMI] 25.0-25.9, adult; I12.9 Hypertensive chronic kidney disease with stage 1 through stage 4 chronic kidney disease, or unspecified chronic kidney disease
CPT/HCPCS: 36415; 36600; 71045; 73700; 76705; 80048; 80053; 80076; 81001; 82140; 82150; 82803; 82948; 83605; 83690; 84484; 84703; 85025; 85379; 85384; 85610; 85730; 86704; 86706; 86708; 86709; 86803; 86886; 86900; 86901; 87040; 87081; 87086; 87186; 87340; 93005; 96361; 96365; 96367; 96375; 99285; J0692; J1644; J1815; J1885; J2405; J2543; J3490; J7060; Q0092

== ENCOUNTER 2023-12-10 05:43 | Emergency (ER) | payer OTHER ==
[~2023-12-10] VITALS: Ht 152.4 cm; Wt 58.1 kg
[~2023-12-10 05:43] MED LIST changes: +ASPI-1822 PO; +ATOR10TA PO; +CEPH-588 PO; +CLON-1201 PO; +LACT1CAP81 PO; +METF-346 PO; -METR-435 PO; +QUET400T PO
[2023-12-10 05:52] VITALS: BP 100/59; PULSE 60; RESP 20; TEMP 97.2; O2SAT 98
[2023-12-10 06:15] VITALS: O2SAT 98
[2023-12-10] MEDS: ALBUTEROL SULFATE/IPRATROPIU 3 ML SOL IH ONE (07:30)
[2023-12-10 07:31] VITALS: PULSE 82; RESP 16; O2SAT 97
[2023-12-10] MEDS: predniSONE 20 MG TAB PO ONE (07:53)
[2023-12-10 08:11] VITALS: O2SAT 97
[2023-12-10] MEDS ORDERED: PRED20TA5 PO (08:44)
[2023-12-10 09:06] VITALS: BP 100/59; PULSE 82; RESP 16; TEMP 97.2; O2SAT 97
== END 2023-12-10 09:07 | disposition home or self-care (01) ==
LOC: MED 05:43
DX: J45.909 Unspecified asthma, uncomplicated (principal); E11.9 Type 2 diabetes mellitus without complications; I10 Essential (primary) hypertension; E78.00 Pure hypercholesterolemia, unspecified; Z79.899 Other long term (current) drug therapy; Z79.82 Long term (current) use of aspirin
CPT/HCPCS: 71045; 93005; 94640; 99285; J7512